=== PATIENT | male | born 1975 | race Caucasian/White ===

== ENCOUNTER → 2017-08-14 | Outpatient (CLI) | payer BC | LOC: BMCIMAGING 15:43 | PROVIDERS: ATTEND Registered Nurse General Practice | DX: J40 Bronchitis, not specified as acute or chronic (principal) ==

== ENCOUNTER 2017-12-15 21:27 | Emergency (ER) | payer BC ==
--- NOTE | 2017-12-15 22:42 | EDPHY ---
General Time Seen by Provider: 12/15/17 22:11 Narrative: CHIEF COMPLAINT: Dog bite to nose, requesting rabies vaccination HISTORY OF PRESENT ILLNESS: Patient presents with complaints of dog bite to the nose. This occurred approximately 48 hr ago while [facility]. He says this was a friend's dog but does not know the vaccination status and he has been unable to contact them. He has a superficial wound to the nose that he irrigated immediately. He has no complaints of the wound but is here because he is worried about rabies. He is asking to be treated with rabies post exposure prophylaxis. He has no complaints of any kind otherwise. Tetanus is reportedly up-to-date. No other associated complaints or modifying factors. TIME OF INJURY: 48 hr prior to arrival TETANUS STATUS: Less than 10 years MEDICAL/SURGICAL/SOCIAL HISTORY: Denies any ongoing medical diagnoses. REVIEW OF SYSTEMS: Ten systems reviewed and are negative unless otherwise noted in the HPI EXAMINATION General Appearance: Alert, no distress Head: normocephalic, atraumatic ENT: Airway widely patent. There is superficial abrasion to the bridge of the nose without any surrounding cellulitis, edema or signs of infection. Neurological: A&O, nonfocal. sensory symmetric, strength symmetric Skin: Warm and dry, no rash. Superficial abrasion to the bridge of the nose. No surrounding erythema, edema or purulence. Extremities: Nontender, no pedal edema MDM: 10:15 p.m. Dog bite to the nasal bridge 48 hr ago in [facility]. The patient is here concern for possibility rabies exposure and is asking for rabies post exposure prophylaxis. I will consult infectious disease for their recommendation. No acute distress. There is a superficial wound to the nose that does not show any signs of infection. 11:15 p.m. Case discussed with on-call infectious disease physician Dr. Jordan. He agrees with rabies post exposure prophylaxis. Patient may be sent to their clinic for the subsequent doses. 11:30 p.m. Notified the patient of my discussion with Dr. Jordan. He will receive rabavert and rabies immune globulin here. He will need to present to [facility] for day 3, day 7 and day 14 treatments. He voices understanding of this. He has strict ED precautions for any redness, warmth or purulence at sites of injection; headache, neck pain or stiffness, weakness. He is comfortable this plan and Discharged home stable condition. SUPERVISION: This patient was independently evaluated without direct involvement of or examination by the attending physician. CONSULTATION: I discussed case with the on-call infectious disease physician Dr. Jordan. ED Precautions: Worsening pain. Erythema, edema, cyanosis, pallor, paresthesia or anesthesia. - History Smoking Status: Never smoked - Objective Vital Signs: Initial Vital Signs Temperature (C) 98.6 F 12/15/17 21:53 Heart Rate 75 12/15/17 21:53 Respiratory Rate 18 12/15/17 21:53 Blood Pressure 129/87 H 12/15/17 21:53 O2 Sat (%) 96 12/15/17 21:53 O2 Delivery Mode Room Air Allergies/Adverse Reactions: flaxseed Allergy (Verified 09/16/14 16:07) soy Allergy (Verified 09/16/14 16:07) tree nut [nuts] Allergy (Verified 09/16/14 16:07) Home Medications: Medication Instructions Recorded Nasonex 09/16/14 Albuterol 12/15/17 Qvar 12/15/17 Medications Given: Discontinued Medications Rabies Immune Globulin (Imogam Rabies Ht 2ml) 1,600 unit IM .ONCE ONE Stop: 12/16/17 00:01 Last Admin: 12/16/17 00:13 Dose: 1,600 unit Rabies Vaccine Human Diploid Cell (Rabavert) 2.5 unit IM .ONCE ONE Stop: 12/15/17 23:14 Last Admin: 12/16/17 00:11 Dose: 2.5 unit Departure - Departure Disposition: Home, Routine, Self-Care Clinical Impression: Dog bite of nose Qualifiers: Encounter type: initial encounter Qualified Code(s): S01.25XA - Open bite of nose, initial encounter Condition: Good Instructions: Animal Bite (ED) Additional Instructions: 1. You will need to contact the [facility] for your day 3, 7 and 14 doses 2. Return to emergency department for any pain, redness, fever, swelling surrounding year injection sites Referrals: Ginger Ortiz MD [Primary Care Provider] - As per Instructions [facility] (ED,. [Edm Groups for Call Sched] - As per Instructions Jonathan Jordan MD [Medical Doctor] - As per Instructions
[2017-12-15] MEDS ORDERED: RABIES VACC, HUMAN DIPLOID/PF 2.5 UNIT VIAL (RABAVERT) IM ONE (23:13)
[2017-12-15] MEDS ORDERED: RABIES IMMUNE GLOBULIN 300 UNIT/2 ML VIAL IM ONE (23:13)
[2017-12-16] MEDS ORDERED: RABIES IMMUNE GLOBULIN 300 UNIT/2 ML VIAL IM ONE
[2017-12-16 00:24] VITALS: BP 124/82
== END 2017-12-16 00:24 | disposition home or self-care (01) ==
DX: S01.25XA Open bite of nose, initial encounter (principal); Z23 Encounter for immunization; W54.0XXA Bitten by dog, initial encounter